=== PATIENT | male | born 1960 | race Caucasian/White ===

== ENCOUNTER → 2019-10-17 06:33 | Outpatient (CLI) | payer BC, SELFPAY ==
--- NOTE | 2019-10-17 06:36 | CA_ITS ---
APPROVED REPORT Exam: Exercise Treadmill Technologist: Sandra Landis, Ht: 5 ft 8 in Wt: 240 lbs BSA: 2.21 m2 HR: 67 bpm BP: 171/93 mmHg Rhythm: SINUS RHYTHM Medical History Medical History: HTN, Hyperlipidemia, Diabetic ??? Noninsulin, Smoking, SOB Medications: Amlodipine,,,,, Atenolol,,,,, Lipitor,,,,, Prozac,,,,, Cardiac Risk Factors: HTN, Hyperlipidemia, Diabetes (non-insulin), FHX of CAD, Smoking, SOB Stress Test Details Test: Luigi HR Resting HR: 77 bpm Max Heart Rate (APMHR): 160 bpm Max HR Achieved: 136 bpm Target HR (85% APMHR): 136 bpm % of APMHR: 85 Recovery HR: 96 bpm BP Resting BP: 168.0/96.0 mmHg Max BP: 190.0/102.0 mmHg Recovery BP: 152.0/85.0 mmHg ECG Resting ECG: SINUS RHYTHM Clinical Exercise duration: 05:56 min Highest Stage Achieved: Exercise capacity: 7.0 METs Stress ECG Conclusion LUIGI PROTOCOL COMPLETED. EXERCISED 5:56 WITH METS OF 7.0. MAX HEART RATE 136 BPM WHICH IS 85% OF PM FOR AGE. MAX BP 190/102. TEST STOPPED DUE TO SOA. HYPERTENSIVE BP RESPONSE. NO CHEST PAIN. POSITIVE FOR SOA AT PEAK EXERCISE. OCCASIONAL PVC. LESS THAN 1.[address] DEPRESSION. IMAGES TO FOLLOW Electronically signed by : Manny Zapien, 10/17/2019 19:25:36
--- NOTE | 2019-10-17 06:36 | NM_ITS ---
APPROVED REPORT Exam: Nuclear Stress Test Indication: HTN, D.M., HYPERLIPIDEMIA, TOB USE, FM HX, C.P., SOB, PALPITATIONS, SYNCOPE, FATIGUE Patient Location: Outpatient Stress Tech: Sally Landis PA Tech:Alison Howell, ARRT RT (R)(N)(M) Ht: 5 ft 8 in Wt: 240 lbs HR: 67 bpm BP: 171/93 mmHg BSA: 2.21 m2 BMI: 36.4 History: HTN, D.M., HYPERLIPIDEMIA, TOB USE, FM HX, C.P., SOB, PALPITATIONS, SYNCOPE, FATIGUE Procedure: Patient exercised on Luigi protocol 5:56 minutes and sec, resting heart rate 67 bpm, resting blood pressure 171/93 mmHg, with exercise maximum heart rate achived was 136 bpm which is Greater than 85 % of the maximum predicted heart rate and blood pressure was 190/102 mmHg. Patient has Adequate exercise capacity, achieved 7.0 METs of workload on treadmill, the blood pressure response to exercise was Hypertensive. Electrocardiogram Resting electrocardiogram showed sinus rhythm, with exercise there is less than 1.[address] segment depression noted from the baseline EKG. The EKG portion of the exercise Myoview is negative for ischemia. Cardiac Stress and Resting SPECT Images: Cardiac Stress and Resting SPECT images were obtained using technetium 99m Myoview 30.9 mCi stress and 10.05 mCi at rest. Gated SPECT for the analysis of segmental wall motion and calculation of the ejection fraction also done. Cardiac stress and resting SPECT images show uniform myocardial activity without segmental perfusion abnormality, computer derived ejection fraction is 57% with no regional wall motion abnormality, right ventricle is normal size and contractility. Conclusion: 1. The EKG portion of the exercise Myoview is negative for ischemia, patient has adequate exercise capacity achieved 7 mets of workload on treadmill, the blood pressure response to exercise was hypertensive, there was no exercise-induced chest discomfort. 2. No scintigraphic evidence of reversible ischemia seen, computer derived ejection fraction is 57% with no regional wall motion abnormality, right ventricle is normal size and contractility. 3. Normal exercise Myoview study except for hypertensive blood pressure response. Electronically signed by : Manny Zapien, 10/17/2019 19:28:07
== END ==
PROVIDERS: PCP Family Medicine; Visit Provider Nurse Practitioner Family
DX: R07.9 Chest pain, unspecified (principal); R00.2 Palpitations; R06.00 Dyspnea, unspecified; E13.69 Other specified diabetes mellitus with other specified complication; E78.5 Hyperlipidemia, unspecified; F17.200 Nicotine dependence, unspecified, uncomplicated; I10 Essential (primary) hypertension; I49.3 Ventricular premature depolarization; R94.31 Abnormal electrocardiogram [ECG] [EKG]; Z82.49 Family history of ischemic heart disease and other diseases of the circulatory system
CPT/HCPCS: 78452; 93017; A9502

== ENCOUNTER → 2019-11-09 15:47 | Outpatient (CLI) | payer BC, SELFPAY ==
[2019-11-09 16:47] LABS: Chloride 103 mmol/L (98-107)
[2019-11-09 16:48] LABS: Sodium 143 mmol/L (136-145)
[2019-11-09 16:51] LABS: Blood Urea Nitrogen 15 mg/dl (9-20); Calcium 9.6 mg/dl (8.4-10.2); Carbon Dioxide 35 mmol/L (22.0-30.0); Estimated Glomerular Filt Rate 68 ml/min (>60); GFR (African American) 83 ML/MIN (>60); Glucose 110 mg/dl (74-100)
== END ==
PROVIDERS: Visit Provider Urology
DX: E13.69 Other specified diabetes mellitus with other specified complication (principal); E78.5 Hyperlipidemia, unspecified; F17.200 Nicotine dependence, unspecified, uncomplicated; I10 Essential (primary) hypertension; I49.3 Ventricular premature depolarization
CPT/HCPCS: 36415; 80048

== ENCOUNTER → 2020-05-02 14:20 | Outpatient (CLI) | payer BC, SELFPAY ==
[2020-05-04 11:00] LABS: PSA, Free 0.25 ng/mL; Prostate Specific Ag 0.9 ng/mL (0.0-4.0)
== END ==
PROVIDERS: Visit Provider Urology
DX: R97.20 Elevated prostate specific antigen [PSA] (principal)
CPT/HCPCS: 36415; 84153; 84154

== ENCOUNTER → 2020-05-24 12:52 | Outpatient (CLI) | payer BC, SELFPAY | PROVIDERS: PCP Family Medicine; Visit Provider Urology | DX: G47.33 Obstructive sleep apnea (adult) (pediatric) (principal) | CPT/HCPCS: G0399 ==

== ENCOUNTER → 2020-06-25 11:41 | Outpatient (CLI) | payer BC, SELFPAY ==
[2020-06-25 13:28] LABS: Chloride 101 mmol/L (98-107); Sodium 138 mmol/L (136-145)
[2020-06-25 13:31] LABS: Blood Urea Nitrogen 22 mg/dl (9-20); Calcium 9.8 mg/dl (8.4-10.2); Carbon Dioxide 29 mmol/L (22.0-30.0); Estimated Glomerular Filt Rate 98 ml/min (>60); GFR (African American) 119 ML/MIN (>60); Glucose 279 mg/dl (74-100)
== END ==
PROVIDERS: Visit Provider Physician Assistant
DX: I10 Essential (primary) hypertension (principal); I49.8 Other specified cardiac arrhythmias
CPT/HCPCS: 36415; 80048

== ENCOUNTER → 2020-07-02 09:13 | Outpatient (CLI) | payer BC, SELFPAY | PROVIDERS: PCP Family Medicine; Visit Provider Urology | DX: I49.8 Other specified cardiac arrhythmias (principal); I10 Essential (primary) hypertension; E78.5 Hyperlipidemia, unspecified; F17.200 Nicotine dependence, unspecified, uncomplicated; G47.33 Obstructive sleep apnea (adult) (pediatric); Z99.89 Dependence on other enabling machines and devices | CPT/HCPCS: 93270 ==

== ENCOUNTER 2024-11-30 10:36 | Outpatient (CLI) | payer MEDICARE, SELFPAY ==
--- NOTE | 2024-11-30 10:42 | XR_ITS ---
FINAL REPORT CLINICAL HISTORY: Right knee pain COMPARISON: None FINDINGS: Three views of the right knee were obtained. There is no acute fracture or dislocation. Small osteophytes are noted along the undersurface of the patella. There is moderate medial compartment joint space narrowing with small to moderate osteophyte formation along the medial joint margin. There is no acute soft tissue abnormality. IMPRESSION: Degenerative/chronic changes without acute abnormality identified. Reviewed, Interpreted and Dictated by Black Trevino MD Transcribed by Debbie Higgins Authenticated and [facility]
--- NOTE | 2024-11-30 10:42 | XR_ITS ---
FINAL REPORT CLINICAL HISTORY: Left knee pain COMPARISON: None FINDINGS: LEFT KNEE 3 views of the left knee were obtained. There is no acute fracture or dislocation. Minimal hypertrophic changes are seen along the undersurface of the patella. There is mild narrowing of the medial compartment joint space. Soft tissues are unremarkable. IMPRESSION: Mild degenerative/chronic changes without acute bony abnormality. Reviewed, Interpreted and Dictated by Black Trevino MD Transcribed by Debbie Higgins Authenticated and [facility]
== END 2024-11-30 23:59 | disposition home or self-care (01) ==
LOC: RAD 10:38
PROVIDERS: PCP Family Medicine; Visit Provider Physician Assistant Surgical
DX: M17.0 Bilateral primary osteoarthritis of knee (principal)
CPT/HCPCS: 73562